=== PATIENT | male | born 1995 | race Caucasian/White ===

== ENCOUNTER 2018-11-25 10:00 | Emergency (ER) | payer SELFPAY ==
[2018-11-25 10:01] VITALS: BP 133/76; PULSE 89; RESP 17; TEMP 36.7; O2SAT 100; BMI 20.9
--- NOTE | 2018-11-25 10:19 | ED.DCSUM_ITS ---
History of Present Illness Chief Complaint: Laceration Informant: Patient Onset: Today Narrative: Patient presents to the ED with laceration to the ventral aspect of his left mid forearm. 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 He denies any active bleeding. He states that he attempted to go to a local urgent care and they referred him to the emergency department. Tetanus status is unknown. He denies any decreased range of motion of his left upper extremity or decrease in sensation. No other injury. Past Medical History - Allergies and Home Meds Allergies/Adverse Reactions: Allergies No Known Allergies Allergy (Verified 11/25/18 10:01) Primary Care Physician: Care Physician,No Primary [Primary Care Provider] - Review of Systems General: Denies: Chills, Fever, Sweats Eyes: Denies: Visual changes - bilaterally, Diplopia ENT: Denies: Rhinorrhea, Sore throat Cardiovascular: Denies: Chest pain, Palpitations Respiratory: Denies: Dyspnea, Cough, Dyspnea on exertion Gastrointestinal: Denies: Abdominal pain, Nausea, Vomiting, Diarrhea, Melena, Hematochezia Genitourinary: Denies: Dysuria, Hematuria, Frequency Musculoskeletal: Denies: Back pain, Extremity Pain Skin: Reports: Wounds. Denies: Rash Neurological: Denies: Headache, Weakness, Numbness Physical Exam Vital Signs/Narrative: Vital Signs Temp Pulse Resp BP Pulse Ox 11/25/18 10:01 98.1 F 89 17 133/76 H 100 General: Well nourished, Well developed, No Acute Distress Head: Normocephalic, Atraumatic Eyes: Perrl, EOMI ENT: Moist mucous membranes, No rhinorrhea Neck: Supple, Nontender Cardiovascular: Regular rate, Regular rhythm, No murmurs Respiratory: No distress, CTA bilaterally, Chest nontender Abdomen: Soft, Nontender, Nondistended, Normal bowel sounds Back: Nontender, Normal Inspection Extremities: Nontender, No edema, - - Full range of motion of all extremities especially the left hand and wrist. Skin: Normal color, No rash, - - 1.5 cm linear laceration to the ventral aspect of the left mid forearm. No active bleeding. It is approximately 5 mm deep. No evidence of foreign body. Normal two-point discrimination of left upper extremity. No tendon involvement. Neurological: Alert, Oriented x3, Cranial nerves II-XII grossly intact, Normal Strength, Normal Sensation Psychological: Normal affect, Normal Mood Diagnostic/Tx/Re-eval - Medical Decision Making Patient presents to the ED with laceration to the ventral aspect of his left forearm. Tetanus was updated. Laceration was repaired. See procedure note. Patient was educated on proper wound care. He was advised to have sutures removed in 7 to 10 days. He was educated on signs/symptoms to return to the ED. He is provided discharge instructions and agreeable to plan. Procedure note: After reviewing risks and benefits of laceration repair, patient elected to have suture repair. Wound was cleansed with Betadine. Wound was locally infiltrated with lidocaine 1% without epinephrine. Anesthesia was achieved. Wound was irrigated with normal saline. Wound was repaired with two 4-0 nylon sutures. Patient tolerated procedure well. Impression: Left forearm laceration. Disposition: Home stable Procedures - Lacerations No standard instances Length: 0.59 in Depth: Sub Q Shape: Linear Prep: Sterile Conditions, Betadine Laceration repair: Irrigated, Lidocaine, Wound explored Suture Information: Ethilon, Simple, 4-0 ED Disposition - Plan for ED Patient: Disposition: Home or Assisted Living Diagnosis: Forearm laceration Instructions: LACERATION, Extrem (Suture, Staple or Tape) Referrals: Care Physician,No Primary [Primary Care Provider] -
== END 2018-11-25 11:54 | disposition home or self-care (01) ==
PROVIDERS: Emergency Provider Physician Assistant
DX: S51.812A Laceration without foreign body of left forearm, initial encounter (principal); W26.8XXA Contact with other sharp object(s), not elsewhere classified, initial encounter; Y93.89 Activity, other specified
CPT/HCPCS: 12001; 90715; 99284

== ENCOUNTER 2019-03-21 14:37 | Emergency (ER) | payer SELFPAY ==
[2019-03-21 14:38] VITALS: BP 140/78; PULSE 107; RESP 16; TEMP 36.8; O2SAT 100; BMI 20.9
--- NOTE | 2019-03-21 15:40 | RAD_ITS ---
STUDY: X-RAY - RIGHT HAND, ATTENTION INDEX FINGER REASON FOR EXAM: Male, 23 years old. OLD INJURY WHERE FINGER WAS SHOT OFF AND RECONSTRUCTED -- CURRENT SWELLING -- ATTENTION TO INDEX FINGER TECHNIQUE: 3 view(s) of the finger were obtained. COMPARISON: None. FINDINGS: Normal metacarpal head. Normal metacarpophalangeal joint. Normal proximal phalanx. Normal middle phalanx. Deformity of the distal phalanx of the index finger in keeping with patient''s history of prior injury and reconstructive surgery. Normal proximal interphalangeal joint. Normal distal interphalangeal joint. Soft tissue swelling. RAD/Finger(s) Min 2 Views IMPRESSION: Soft tissue swelling. Electronically Signed: Jacques Avilez, at 15:55 EST , Service support ,
--- NOTE | 2019-03-21 16:48 | ED.RN ---
pt reports to this rn at 1615, that he has to leave, and will come back later.
== END 2019-03-21 16:50 | disposition left against medical advice (07) ==
LOC: ED 16:16
PROVIDERS: Emergency Provider Emergency Medicine
DX: M79.644 Pain in right finger(s) (principal); Z53.21 Procedure and treatment not carried out due to patient leaving prior to being seen by health care provider
CPT/HCPCS: 73140

== ENCOUNTER 2021-06-29 17:37 | Emergency (ER) | payer SELFPAY ==
[2021-06-29 17:37] VITALS: BP 121/69; PULSE 90; RESP 16; TEMP 36.7; O2SAT 99; BMI 20.7
--- NOTE | 2021-06-29 18:09 | EX.ED.VIS.EY ---
HPI History of Present Illness Chief Complaint: Eye Problem Informant: patient Onset/Context/Timing Location: Bilateral Eyes Onset: Today Context: Sudden Onset Timing: Continuous Current Severity: Mild Maximum Severity: Mild Associated Symptoms Associated Symptoms - Eyes: Burning History of injury: Yes and Chemical exposure Visual correction: None Narrative Narrative: 25-year-old male does not wear glasses or contacts. States that he was power washing and got bleach in both eyes. This is not a workers comp claim. He denies any other complaints. States he did wash them out immediately several times. Prior similar symptoms: No Recent Illness/Hospitalization: No PFSH PFSH Medical History no medical history no medical history Home Medications ondansetron HCl 4 mg tablet 4 mg PO Q6H PRN #20 tab 12/23/20 [Rx Last Taken Unknown] Allergy/AdvReac Type Severity Reaction Status Date / Time No Known Allergies Allergy Verified 12/23/20 06:44 Social History Smoking Status: Current every day smoker tobacco type: cigarettes ROS ROS ED ROS Narrative Denies recent illness. Review of Systems ROS Unobtainable: Denies due to encephalopathy Constitutional Constitutional ED: Denies fever(s) Eyes Eyes: Denies change in vision ENT ENT ED: Denies ear pain Cardiovascular Cardiovascular: Denies chest pain Respiratory/Chest Respiratory/Chest: Denies dyspnea Gastrointestinal Gastrointestinal: Denies abdominal pain Genitourinary Genitourinary ED: Denies dysuria Musculoskeletal Musculoskeletal: Denies myalgias Integumentary Denies rash Neurologic Neurologic: Denies headache(s) Psychiatric Psychiatric: Denies depression Endocrine Endocrinology: Denies polyuria Hematologic/Lymphatic Hematologic/Lymphatic: Denies easy bruising Allergic/Immunologic Allergic/Immunologic ED: Denies urticaria EXAM Physical Exam Narrative Exam Narrative: 25-year-old male no acute distress vital signs stable afebrile. Pipradrol reactivates motions are intact. Is watering of his eyes but otherwise are unremarkable. Otherwise exam normal. Const Vital Signs: 06/29/21 17:37 Temperature 98.1 F Temperature Source Temporal Pulse Rate 90 Respiratory Rate 16 Blood Pressure 121/69 H Blood Pressure Mean 86 Pulse Ox 99 Oxygen Delivery Method Room Air Positive well nourished and well developed; Negative for obese, cachectic, contractures or unkempt General Appearance ED: well developed and NAD; Negative for unkempt, cachectic or contractures Nutritional Appearance: Negative for cachectic or obese HEENT atraumatic; Negative for trauma or tenderness Eyes General Eye ED: Yes normal appearance of both eyes and normal light reflex Visual Acuity: acuity normal Visual Field: No peripheral vision loss Alignment: alignment normal Periorbital: periorbital findings normal Eyelid: eyelids normal Conjunctiva: conjunctiva normal Sclera: sclera normal Cornea: cornea normal Pupil: PERRL and accommodation reflex normal; Negative for dilated, fixed or irregular EOM: EOM abnormal Direct Ophthalmoscopy: normal light reflex Slit Lamp: slit lamp exam performed with fluorescein Neck no lymphadenopathy, supple and no JVD General: Negative for tenderness Resp normal respiratory effort, no retractions, no use of accessory muscles and clear to auscultation bilaterally Cardio regular rate, regular rhythm, S1 normal heart sound, S2 normal heart sound and no murmurs GI non-tender and non-distended Palpation: soft Back/Spine no CVA tenderness General Back: Negative for CVA tenderness Extremity normal to inspection General Extremety ED: Negative for edema General Extremity: Negative for edema Neuro oriented x3 and moves all extremities Sensorium / Orientation: alert, oriented to person, oriented to place and oriented to time Psych Appearance: Negative for unkempt Attitude: No agitated Mood & Affect: Negative for depressed or tearful Skin no wounds Lesions: no lesions Rashes: no rashes MDM MDM MDM Narrative Medical decision making narrative: 25-year-old male on bleach exposure both eyes. Irrigate him at the scene. We will also irrigate his eyes. Do visual acuity and slit-lamp exam. Nurses irrigated the patient's eyes. I went back in to do a slit-lamp examination and I believe he left without being discharged. The emergency department was busy at the time. Discharge Plan Triage Chief Complaint: Eye Problem ED Provider: [facility] Dx/Rx/DC Orders Clinical Impression: Acute chemical conjunctivitis Prescriptions: No Action ondansetron HCl [Zofran] 4 mg tablet 4 mg PO Q6H PRN (Reason: nausea and vomiting) Qty: 20 RF: 0 Primary Care Provider: Care Physician,No Primary Referrals: Care Physician,No Primary [Primary Care Provider] - Disposition Disposition: [facility]
[2021-06-29] MEDS: Tetracaine 0.5% Ophthalmic Bottle 1 DRP EACH EYE (18:14)
--- NOTE | 2021-06-29 20:01 | CM.ED ---
SW Note Referral Source: Case Find Referral Reason: NO PCP and No insurance SW met with patient and provided him financial aid coordinator information packet and list of [facility] Healthcare Providers. SW remains available if needs arise. Plan: Resources provided Becky BARRIENTOS
== END 2021-06-29 20:25 | disposition left against medical advice (07) ==
PROVIDERS: Emergency Provider Emergency Medicine; Visit Provider Emergency Medicine
DX: H10.213 Acute toxic conjunctivitis, bilateral (principal); F17.210 Nicotine dependence, cigarettes, uncomplicated
CPT/HCPCS: 99284; A4216

== ENCOUNTER 2021-08-05 14:08 | Emergency (ER) | payer SELFPAY ==
[2021-08-05 14:09] VITALS: BP 127/71; PULSE 110; RESP 16; TEMP 36.6; O2SAT 97; BMI 21.2
--- NOTE | 2021-08-05 14:22 | EDS_ITS ---
HPI History of Present Illness Chief Complaint: Back Informant: patient Onset/Context/Timing Onset: Yesterday Context: Gradual Onset Injury: - (Pulling motion to start a lawnmower he) Timing: Waxes and wanes Quality: Aching and - (Tightness) Location: Thoracic Current Severity: Moderate Maximum Severity: Moderate Worsened by: improves with Movement and - (Deep breath) Associated Symptoms Associated Symptoms: Negative for Numbness and Tingling Narrative Narrative: Patient present secondary to back pain. He states he was trying to start a lawnmower last evening when he felt a sudden tightening in his back between his shoulder blades. He tried to go to work this morning but any movement of his arms causes severe pain between his shoulder blades. He does report pain with deep breath. He did take Tylenol earlier today. No pain radiating to his arms and no paresthesias. PFSH PFSH Medical History no medical history no medical history Home Medications cyclobenzaprine 10 mg PO TID PRN #10 tab 08/05/21 [Rx Last Taken Unknown] lidocaine [Lidoderm] 1 patch TOPICAL DAILY #5 ea 08/05/21 [Rx Last Taken Unknown] naproxen [Naprosyn] 500 mg PO BID PRN #20 tab 08/05/21 [Rx Last Taken Unknown] Allergy/AdvReac Type Severity Reaction Status Date / Time No Known Allergies Allergy Verified 08/05/21 14:09 Social History Smoking Status: Current every day smoker tobacco type: cigarettes ROS ROS ED Constitutional Constitutional ED: Denies chills or fever(s) Eyes Eyes: Denies change in vision ENT ENT ED: Denies sore throat Cardiovascular Cardiovascular: Denies chest pain Respiratory/Chest Respiratory/Chest: Reports other Details: Pain with deep breath but not short of breath ; Denies cough or dyspnea Gastrointestinal Gastrointestinal: Denies abdominal pain, nausea or vomiting Musculoskeletal Musculoskeletal: Reports back pain Integumentary Denies rash Neurologic Neurologic: Denies headache(s), paresthesias or weakness Psychiatric Psychiatric: Denies anxiety or depression Allergic/Immunologic Allergic/Immunologic ED: Denies urticaria EXAM Physical Exam Const Vital Signs: 08/05/21 14:09 Temperature 97.9 F Temperature Source Temporal Pulse Rate 110 H Respiratory Rate 16 Blood Pressure 127/71 H Blood Pressure Mean 89 Pulse Ox 97 Oxygen Delivery Method Room Air Positive well nourished and well developed General Appearance ED: well developed HEENT Reports moist mucous membranes Eyes PERRL and EOMs intact bilaterally Neck supple Resp normal respiratory effort and clear to auscultation bilaterally Cardio regular rate and regular rhythm GI soft to palpation and non-tender Back/Spine Back/Spine Narrative: Tenderness to palpation of the thoracic paraspinal muscles. Minimal midline tenderness. No overlying skin change. Neuro oriented x3 and no sensory deficits noted Neuro Narrative: Pain with movement of arms but normal strength on testing. Sensorium / Orientation: alert Motor Exam: strength 5/5 throughout Skin no rashes or lesions noted [facility] Treatment and Re-Evaluation Narrative: Patient presents with musculoskeletal back pain. He will be treated with Naprosyn, Flexeril, Lidoderm patches. He will be written off work for the next 2 days. Return instructions are provided. Discharge Plan Triage Chief Complaint: Back ED Provider: Gwen Pepper Dx/Rx/DC Orders Clinical Impression: Musculoskeletal back pain Instructions: ED Back Pain (Acute or Chronic) Prescriptions: New naproxen [Naprosyn] 500 mg tablet 500 mg PO BID PRN (Reason: pain) Qty: 20 RF: 0 cyclobenzaprine 10 mg tablet 10 mg PO TID PRN (Reason: muscle spasm) Qty: 10 RF: 0 lidocaine [Lidoderm] 5 % adhesive patch,medicated 1 patch topical DAILY Qty: 5 RF: 0 Stand Alone Forms: ED Work / School Excuse Primary Care Provider: Care Physician,No Primary Referrals: Tejinder Fox MD [NON-STAFF] - As Needed Care Physician,No Primary [Primary Care Provider] - Disposition Disposition: Home, Self Care
[2021-08-05] MEDS: Lidocaine 5% Patch 1 PATCH TOPICAL (14:33)
[2021-08-05] MEDS: Naproxen 500 MG Tablet PO (14:33)
== END 2021-08-05 14:35 | disposition home or self-care (01) ==
LOC: ED 14:30
PROVIDERS: Emergency Provider Emergency Medicine; Visit Provider Emergency Medicine
DX: M54.6 Pain in thoracic spine (principal); F17.210 Nicotine dependence, cigarettes, uncomplicated
CPT/HCPCS: 99284

== ENCOUNTER 2021-10-14 03:50 | Emergency (ER) | payer BC, SELFPAY ==
[2021-10-14 03:51] VITALS: BP 144/91; PULSE 70; RESP 16; TEMP 36.1; O2SAT 100; BMI 21.2
--- NOTE | 2021-10-14 03:56 | EKG12_ITS ---
Test Reason : [facility] [place] Pressure : / mmHG Vent. Rate : 063 BPM Atrial Rate : 063 BPM P-R Int : 134 ms QRS Dur : 096 ms QT Int : 380 ms P-R-T Axes : 043 087 042 degrees QTc Int : 388 ms Sinus rhythm with Premature atrial complexes Otherwise normal ECG Confirmed by INGRID CRUZ, IRINA ([id number]), book or script editor DELROY WITT ([id number]) on 10/15/2021 10:10:06 AM Referred By: Confirmed By:IRINA QUINTERO MD
--- NOTE | 2021-10-14 03:56 | EX.ED.DYSGE1 ---
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 Patient states he is having problems with his child's mother. He notes that his daughter returns 2 soon. He does have visitation but states it is hard because they live in [place]. Judah his daughter's mother called the police after he was threatening suicide. His specific plan is to drive his car in front of a semi on his way to work this morning. He states that when he was younger he was in multiple psychiatric facilities and on multiple psychiatric medications. He states that he has not been on any medicine since around the age of 14. He states that that was the last time he can recall seeing a psychiatrist or counselor. He denies any pending legal issues. He is currently employed. He notes medicinal cannabis use. The transit authority police officer that brought him in notes that the patient stated that when he has been interviewed with psychiatry in the past he would say what he needed to say to get out of the hospital and not what he needed to say to actually help him. PFSH PFSH Home Medications cyclobenzaprine 10 mg tablet 10 mg PO TID PRN muscle spasm #10 tabs 08/05/21 [Rx Last Taken Unknown] lidocaine 5 % topical patch (Lidoderm) 1 patch topical DAILY #5 ea 08/05/21 [Rx Last Taken Unknown] naproxen 500 mg tablet (Naprosyn) 500 mg PO BID PRN pain #20 tabs 08/05/21 [Rx Last Taken Unknown] Allergy/AdvReac Type Severity Reaction Status Date / Time No Known Allergies Allergy Verified 08/05/21 14:09 Surgical History H/O hand surgery Social History (Updated 10/14/21 @ 03:[address] Avelino Mims, ) Smoking Status: Current every day smoker tobacco type: cigarettes substance use type: marijuana ROS ROS ED Constitutional Constitutional ED: Denies chills or weight loss Eyes Eyes: Denies change in vision or diplopia ENT ENT ED: Denies ear pain, rhinorrhea or sore throat Cardiovascular Cardiovascular: Denies chest pain, orthopnea, palpitations or racing heartbeat Respiratory/Chest Respiratory/Chest: Denies cough, dyspnea or orthopnea Gastrointestinal Gastrointestinal: Denies abdominal pain, diarrhea, nausea or vomiting Genitourinary Genitourinary ED: Denies dysuria, hematuria or urinary frequency Musculoskeletal Musculoskeletal: Denies arthralgias or myalgias Integumentary Denies abscess or rash Neurologic Neurologic: Denies headache(s) or weakness Psychiatric Psychiatric: Reports depression, suicidal ideation and suicidal thoughts; Denies anxiety Endocrine Endocrinology: Denies polydipsia, polyphagia or polyuria Allergic/Immunologic Allergic/Immunologic ED: Denies mouth swelling, tongue swelling or urticaria EXAM Physical Exam Const Vital Signs: 10/14/21 03:51 Temperature 96.9 F L Temperature Source Oral Pulse Rate 70 Respiratory Rate 16 Blood Pressure 144/91 H Blood Pressure Mean 108 Pulse Ox 100 Oxygen Delivery Method Room Air MDM MDM MDM Narrative Medical decision making narrative: Patient was medically cleared. Toxicology screen is positive only for cannabinoids which he is prescribed. COVID test is negative. I believe the patient would benefit from inpatient psychiatric evaluation. We will discuss with crisis for evaluation. Lab Data Attestation: I reviewed the patient's lab results. Labs: Laboratory Results - last 24 hr 10/14/21 10/14/21 10/14/21 04:00 04:20 04:20 WBC 9.8 RBC 5.01 Hgb 15.6 Hct 44.3 MCV 88.4 MCH 31.1 MCHC 35.2 RDW Std Deviation 37.9 RDW Coeff of Rubi 11.8 Plt Count 289 MPV 9.1 Immature Gran % (Auto) 0.200 Neut % (Auto) 63.9 Lymph % (Auto) 23.3 [place] % (Auto) 9.3 Eos % (Auto) 2.6 Baso % (Auto) 0.7 Absolute Neuts (auto) 6.2 Absolute Lymphs (auto) 2.27 Nucleated RBC % 0 Sodium Potassium Chloride Carbon Dioxide Anion Gap BUN Creatinine Estim Creat Clear Calc Est GFR (MDRD) Af Amer Est GFR (MDRD) Non-Af BUN/Creatinine Ratio Glucose Calcium Total Bilirubin AST ALT Alkaline Phosphatase Total Protein Albumin Globulin Albumin/Globulin Ratio Urine Opiates Screen NEGATIVE Urine Methadone Screen NEGATIVE Ur Barbiturates Screen NEGATIVE Ur Phencyclidine Scrn NEGATIVE Ur Amphetamines Screen NEGATIVE MDMA (Ecstasy) Screen NEGATIVE U Benzodiazepines Scrn NEGATIVE Urine Cocaine Screen NEGATIVE U Cannabinoids Screen POSITIVE H Ur Drug Screen Comment Ethyl Alcohol 3.0 10/14/21 04:20 WBC RBC Hgb Hct MCV MCH MCHC RDW Std Deviation RDW Coeff of Rubi Plt Count MPV Immature Gran % (Auto) Neut % (Auto) Lymph % (Auto) [place] % (Auto) Eos % (Auto) Baso % (Auto) Absolute Neuts (auto) Absolute Lymphs (auto) Nucleated RBC % Sodium 142 Potassium 3.4 L Chloride 111 H Carbon Dioxide 26.0 Anion Gap 5 BUN 8 Creatinine 0.79 Estim Creat Clear Calc 130.62 Est GFR (MDRD) Af Amer 156 Est GFR (MDRD) Non-Af 129 BUN/Creatinine Ratio 10.2 Glucose 113 H Calcium 8.2 L Total Bilirubin 0.40 AST 14 L ALT 17 Alkaline Phosphatase 65 Total Protein 7.0 Albumin 3.7 Globulin 3.3 Albumin/Globulin Ratio 1.1 Urine Opiates Screen Urine Methadone Screen Ur Barbiturates Screen Ur Phencyclidine Scrn Ur Amphetamines Screen MDMA (Ecstasy) Screen U Benzodiazepines Scrn Urine Cocaine Screen U Cannabinoids Screen Ur Drug Screen Comment Ethyl Alcohol EKG Initial EKG: Attestation: I personally reviewed and interpreted this EKG as follows: Comments: Sinus rhythm with a ventricular rate of 63 bpm. PAC noted. Discharge Plan Triage Chief Complaint: Suicidal ED Provider: Avelino Mims Dx/Rx/DC Orders Clinical Impression: Depression, Suicidal ideation Prescriptions: No Action naproxen [Naprosyn] 500 mg tablet 500 mg PO BID PRN (Reason: pain) Qty: 20 0RF cyclobenzaprine 10 mg tablet 10 mg PO TID PRN (Reason: muscle spasm) Qty: 10 0RF lidocaine [Lidoderm] 5 % adhesive patch,medicated 1 patch topical DAILY Qty: 5 0RF Rx Instructions: leave on most painful area for up to 12 hrs Primary Care Provider: Care Physician,No Primary Referrals: Care Physician,No Primary [Primary Care Provider] - Disposition Disposition: Psychiatric Hospital or Unit
[2021-10-14 04:28] LABS: Amphetamine Urine VISTA NEGATIVE (<1000 ng/mL); Barbiturate Urine VISTA NEGATIVE (< 200 ng/mL); Benzodiazepine Urine VISTA NEGATIVE (< 200 ng/mL); Cocaine Urine VISTA NEGATIVE (< 300 ng/mL); Ecstacy Urine VISTA NEGATIVE (< 500 ng/mL); Methadone Urine VISTA NEGATIVE (< 300 ng/mL); PCP Urine VISTA NEGATIVE (< 25 ng/mL); THC Urine VISTA POSITIVE (< 50 ng/mL); Vista UDS pH Range 5
[2021-10-14 04:30] LABS: Absolute Lymphocyte Count 2.27 X10^3/uL (0.83-4.51); Absolute Neutrophil Count 6.2 X10^3/uL (2.0-7.7); Basophil# 0.07 X10^3/uL; Basophil% 0.7 % (0-1); Eosinophil# 0.25 X10^3/uL; Eosinophils% 2.6 % (0-5); Hematocrit 44.3 % (40-54); Hemoglobin 15.6 g/dL (13.0-16.5); Lymphocyte # 2.27 X10^3/ul (0.83-4.51); Lymphocyte % 23.3 % (19-41); Mean Corp Hgb Conc 35.2 g/dL (32-36); Mean Corpuscular Hgb 31.1 pg (27.0-32.0); Mean Corpuscular Volume 88.4 fL (80-94); Mean Platelet Vol. 9.1 fl (6.2-12.0); Monocyte# 0.91 X10^3/uL; Monocyte% 9.3 % (0-10); NRBC Flagged by Analyzer 0 % (0-5); Neutrophil # 6.23 X10^3/uL (2.7-7.7); Neutrophil % 63.9 % (47-70); Platelet Count 289 K/mm3 (150-450); RBC Distribution Width CV 11.8 % (11.6-14.6); RBC Distribution Width SD 37.9 fl (35.1-43.9); Red Blood Count 5.01 M/mm3 (4.6-6.2); White Blood Count 9.8 K/mm3 (4.4-11.0)
[2021-10-14 04:42] LABS: ALB/GLOB Ratio 1.1 RATIO (0.9-2.4); AST(SGOT) 14 U/L (15-37); Alanine Aminotransfer ALT/SGPT 17 U/L (16-61); Albumin, Serum 3.7 g/dL (3.2-5.0); Alkaline Phosphatase 65 U/L (45-117); Anion Gap 5 (5-15); BUN 8 mg/dL (7-18); BUN/Creat Ratio 10.2 RATIO (10-20); Calcium,Total 8.2 mg/dL (8.5-10.1); Chloride 111 mmol/L (98-107); Creatinine, Serum 0.79 mg/dL (0.70-1.30); EST Glomerular Filtration Rate 129 mL/min (>60); Est Glom Filt Rate - Afr Amer 156 mL/min (>60); Estimated Creatinine Clearance 130.62 ml/min; Globulin 3.3 g/dL (2.2-4.2); Glucose 113 mg/dL (74-106); Potassium 3.4 mmol/L (3.5-5.1); Sodium Level 142 mmol/L (136-145)
[2021-10-14 06:00] VITALS: BP 125/73; PULSE 58; RESP 15; TEMP 36.8; O2SAT 98
--- NOTE | 2021-10-14 06:00 | NURSING ---
CALLED [facility] AT [phone]
[2021-10-14 07:26] VITALS: RESP 16
[2021-10-14 09:21] VITALS: RESP 16
--- NOTE | 2021-10-14 10:01 | ED.RN ---
CONTACTED [facility] FOR AN UPDATE. PT HAS BEEN REFERED BUT COULD NOT TELL ME TO WHAT FACILITY. SHE WILL HAVE THEM CALL WHEN THEY FINISH UP WITH THE PT THEY ARE WITH AT THIS TIME
[2021-10-14 10:20] VITALS: BP 113/66; PULSE 52; RESP 14; TEMP 36.6; O2SAT 99
--- NOTE | 2021-10-14 10:46 | CM.ED ---
SW Note SW called [facility]. No one was available in Crisis. TERRA requested a call back when staff is available. Becky BARRIENTOS
--- NOTE | 2021-10-14 10:52 | ED.RN ---
PER AWAIS WITH [facility], SHE MADE A REFERRAL TO [facility]. WHEN ASKED IF ANY OTHER REFERRALS WERE MADE SHE STATED NO
--- NOTE | 2021-10-14 10:54 | CM.ED ---
Addendum entered by Becky Delgado 10/14/21 11:38: TERRA called Dalia at [facility] and left message inquiring about patient's admission. TERRA met with patient, per his request. TERRA explained that patient could not leave as he is on a pink slip. Patient said that he wanted to sign a waiver. Patient voiced that he was going to leave. TERRA advised that if he leaves then the police will be called to bring him back. Patient voiced I am not going to hurt myself. TERRA called Maria G at [facility] she said that patient was accepted but the hospital and [facility] were called and were told he was discharged. TERRA said that a bed was needed. Maria G said that they have bed and can accept. She confirmed that patient is a 25 year old male. Accepting MD is Schuyler and unit is to be assigned, Phone for report is [phone]. Mackenzie will call for transport. TERRA left voice TERRA updated Dalia at [facility] and advised that patient was accepted at [facility] with accepting MD. TERRA was advised transport was 20-30 minutes TERRA called Maria G and updated her that transport would be her in 20-30 minutes and that Terra had faxed referral. Becky BARRIENTOS Original Note: TERRA Note TERRA received call from Dalia at [facility]. She advised that patient has been referred to [facility] since 7:00 am this morning and she had called and checked on patient's status and they were checking and will call her back. TERRA updated CHARLINE Mann. Becky BARRIENTOS
--- NOTE | 2021-10-14 11:42 | NURSING ---
SPOKE WITH ALEXANDRA FROM [facility], ETA TO [place] IS 20/30 MINUTES AT THIS TIME
--- NOTE | 2021-10-14 11:51 | CM.ED ---
TERRA called [facility] and spoke to Naeem and he transferred this ticket writer to Raymundo for report. Becky BARRIENTOS
--- NOTE | 2021-10-14 12:04 | CM.ED ---
TERRA updated patient that he can have unopened pack of cigarrettes at [facility]. Becky BARRIENTOS
== END 2021-10-14 12:22 ==
PROVIDERS: Emergency Provider Emergency Medicine; Visit Provider Emergency Medicine
DX: F32.A Depression, unspecified (principal); R45.851 Suicidal ideations; F17.210 Nicotine dependence, cigarettes, uncomplicated
CPT/HCPCS: 80053; 80307; 82077; 85025; 87811; 93005; 99285